=== PATIENT | male | born 1990 | race Caucasian/White ===

== ENCOUNTER 2016-12-17 20:28 | Emergency (ER) | payer MEDICAID, OTHER ==
[2016-12-18] MEDS ORDERED: CEPHALEXIN 250 MG CAP As Ordered ONE (00:01)
[2016-12-18] MEDS ORDERED: OXYCODONE/APAP 5MG/325MG(BULK) 1 TAB TAB As Ordered ONE (00:01)
--- NOTE | 2016-12-18 00:24 | EDDOCDS ---
Physician Documentation [facility] Name: Frank Sandoval Age: 26 yrs Sex: Male : 1990 Arrival Date: 12/17/2016 Time: 20:28 Bed PD Private MD: [facility] Disposition: 12/17/16 23:55 Discharged to Home/Self Care. Impression: Laceration with foreign body of right hand - glass. - Condition is Stable. - Discharge Instructions: Hand Contusion, Laceration Care, Adult. - Prescriptions for Keflex 500 mg Oral Capsule - take 1 capsule by ORAL route every 8 hours for 10 days; 30 capsule. - Medication Reconciliation, Local Pharmacy Hours form. - Follow up: Luciano Cross; When: Call to arrange an appointment; Reason: Recheck today's complaints, Continuance of care. Follow up: Jesu Lowry; When: Call to arrange an appointment; Reason: Recheck today's complaints, Continuance of care. - Problem is new. - Symptoms are unchanged. Historical: - Allergies: hydrocodone; - Home Meds: 1. none - PMHx: none; - PSHx: oral surgery; - Social history: Smoking status: Patient uses tobacco products, current every day smoker. No barriers to communication noted, The patient speaks fluent Taiwanese, Speaks appropriately for age. - Family history: Not pertinent. - : The pt / caregiver states he / she is not on anticoagulants. Home medication list is obtained from the patient. - Exposure Risk Screening:: None identified. Vital Signs: 12/17 20:31 BP 158 / 72; Pulse 108; Resp 18 S; Temp 99.1(O); Pulse Ox 99% on R/A; Weight 63.5 kg / gr2 139.99 lbs (R); Height 5 ft. 4 in. (162.56 cm) (R); Pain 7/10; 23:59 BP 148 / 79; Pulse 93; Resp 16; Temp 98.4(TE); Pulse Ox 96% on R/A; Pain 0/10; rw1 20:31 Body Mass Index 24.03 (63.50 kg, 162.56 cm) gr2 Procedures: 23:58 Laceration repair:. mo1 Laceration: 23:58 Wound Repair of 1.5cm ( 0.6in ) full thickness laceration to medial aspect of right mo1 hand. Irregularly shaped.. Skin/tissue flap noted.. Foreign body noted.. Distal neuro/vascular/tendon intact. Anesthesia: Local anesthetic administered with 2 mls of 2% lidocaine. Wound prep: Moderate cleansing with betadine by provider, Wound margin revised minimally, Wound debrided, Wound explored. Skin closed with 1 x 4-0 Prolene using Simple interrupted sutures. Dressed with Bacitracin. Patient tolerated well. MDM: 23:08 Hand, Complete Ordered. EDMS 23:55 oxyCODONE-acetaminophen 4 pack 5 mg-325 mg 1 packets PO once; Dispense with pt, take as mo1 per instruction on package ordered. 23:55 Cephalexin 500 mg PO once ordered. mo1 23:55 Dressing ordered. mo1 12/18 00:02 Financial registration complete. hs2 Administered Medications: 00:13 Drug: Cephalexin 500 mg [cephalexin 250 mg capsule (2 caps)] Route: PO; rw1 00:14 Follow up: Response: Pt left department before re-evaluation is appropriate rw1 00:17 Drug: oxyCODONE-acetaminophen 4 pack 1 packets [oxycodone-acetaminophen 5 mg-325 mg rw1 tablet (1 tabs)] {Co-Signature: ko2 (Nadira Barragan RN).} Route: PO; 00:23 Follow up: Response: Med's dispensed home rw1 Signatures: Dispatcher [employer] EDMA Naresh Decker,LEATHER TACKER LEATHER TACKER rw1 Chaitanya Vogel PA PA mo1 Charu Castle,RN RN eaJess Prado, Reg Reg hs2 Nadira Barragan RN ko2 MTDD
--- NOTE | 2016-12-18 00:25 | EDDOCDS ---
[facility] Name: Frank Sandoval Age: 26 yrs Sex: Male : 1990 Arrival Date: 12/17/2016 Time: 20:28 Bed PD Private MD: [facility] Diagnosis: Laceration with foreign body of right hand-glass Presentation: 12/17 20:33 Presenting complaint: Patient states: pt states while trying to open a window that was ead frozen shut, window shattered. pt reports glass to right hand. dressing in place on arrival. pt reports incident occurred at approx 1930. Presenting complaint: Patient states: pt states he went to [facility] and was told to come to ER. Adult Sepsis Screening: The patient does not have new or worsening altered mentation. Patient's respiratory rate is less than 22. Systolic blood pressure is greater than 100. Patient has a qSOFA score of 0- Negative Sepsis Screen. Suicide/Homicide risk assessment- the patient denies having any suicidal and/or homicidal ideations and does not present with any other emotional, behavioral or mental health complaints. Status: Patient is not a field service supervisor or dependent. Transition of care: patient was not received from another setting of care. 20:33 Method Of Arrival: Walkin/Carried/Asstd ead 20:33 Acuity: RUSS Level 4 ead Triage Assessment: 20:36 General: Appears in no apparent distress, comfortable, Behavior is appropriate for age, ead cooperative. Pain: Location: right hand Pain currently is 10 out of 10 on a pain scale. HIV screening NA for this visit Offered previously. Neurological: No deficits noted. Respiratory: Respiratory effort is even, unlabored. Derm: Skin is pink, warm & dry. Derm: pt has dressing in place on arrival. Musculoskeletal: Reports pain in right hand. Historical: - Allergies: hydrocodone; - Home Meds: 1. none - PMHx: none; - PSHx: oral surgery; - Social history: Smoking status: Patient uses tobacco products, current every day smoker. No barriers to communication noted, The patient speaks fluent Portuguese, Speaks appropriately for age. - Family history: Not pertinent. - : The pt / caregiver states he / she is not on anticoagulants. Home medication list is obtained from the patient. - Exposure Risk Screening:: None identified. Screenin/14 00:15 Screening information is obtained from the patient. Fall risk: No risks identified. rw1 Assistance ADL's: requires no assistance with activities of daily living. Abuse/DV Screen: The patient / caregiver reports he/she is: not in a situation that causes fear, pain or injury. Nutritional screening: No deficits noted. Advance Directives: Currently, there is no health care proxy. home support is adequate. Assessment: 00:15 Reassessment: Patient appears in no apparent distress at this time. Patient denies pain rw1 at this time. Patient states feeling better. Patient states symptoms have improved. Vital Signs: 12/17 20:31 BP 158 / 72; Pulse 108; Resp 18 S; Temp 99.1(O); Pulse Ox 99% on R/A; Weight 63.5 kg gr2 (R); Height 5 ft. 4 in. (162.56 cm) (R); Pain 7/10; 23:59 BP 148 / 79; Pulse 93; Resp 16; Temp 98.4(TE); Pulse Ox 96% on R/A; Pain 0/10; rw1 20:31 Body Mass Index 24.03 (63.50 kg, 162.56 cm) gr2 Vitals: 20:31 Log In Time: December 17, 2016 at 20:31. gr2 ED Course: 20:30 Patient visited by Enedelia Courtney. gr2 20:30 Patient moved to Waiting gr2 20:31 [facility] is Private Physician. gr2 20:33 Patient visited by Enedelia Courtney. gr2 20:33 Patient moved to Pre RCE gr2 20:35 Triage Initiated ead 22:57 Chaitanya Vogel PA is PHCP. mo1 22:57 Ike Hilliard DO is Attending Physician. mo1 22:57 Patient moved to Triage 2 kb5 23:07 Patient visited by Chaitanya Vogel PA. mo1 23:21 Patient moved to PD ko2 23:55 Luciano Cross is Referral Physician. mo1 23:55 Jesu Lowry is Referral Physician. mo1 12/18 00:15 The patient / caregiver is instructed regarding the plan of care and ED course. rw1 00:15 No IV's were initiated during this patient's visit. No procedures done that require rw1 assistance. Administered Medications: 00:13 Drug: Cephalexin 500 mg [cephalexin 250 mg capsule (2 caps)] Route: PO; rw1 00:14 Follow up: Response: Pt left department before re-evaluation is appropriate rw1 00:17 Drug: oxyCODONE-acetaminophen 4 pack 1 packets [oxycodone-acetaminophen 5 mg-325 mg rw1 tablet (1 tabs)] {Co-Signature: pal (Nadira Barragan RN).} Route: PO; 00:23 Follow up: Response: Med's dispensed home rw1 Order Results: There are currently no results for this order. Outcome: 12/17 23:55 Discharge ordered by Provider. mo1 02 00:15 Discharge Assessment: Patient awake, alert and oriented x 3. No cognitive and/or rw1 functional deficits noted. Patient verbalized understanding of disposition instructions. patient administered narcotics - yes. Pt provided with safe discharge. The following High Risk Discharge criteria are identified: None. Discharged to home ambulatory, with significant other. Condition: stable Condition: improved. Discharge instructions given to patient, Instructed on discharge instructions, follow up and referral plans. medication usage, no driving heavy equipment, Demonstrated understanding of instructions, medications, Pt was receptive of discharge instructions/ teaching. Prescriptions given X 1. No special radiology studies were completed. Property sent home with patient. 00:24 Patient left the ED. rw1 Signatures: Naresh Decker,ANIMAL SITTER ANIMAL SITTER rw1 Cole Diaz, BONITA PETAL CUTTER kb5 Enedelia Courtney2 Chaitanya Vogel PA PA mo1 Charu Castle RN RN ead Ogden, Kari, RN RN michael2 Nadira rodriguez2 MTDD
--- NOTE | 2016-12-18 07:55 | REP ---
Clinical: Trauma. Technique: AP, lateral, bilateral oblique views. Findings: The osseous structures and joint spaces are intact and normal. There is no evidence for acute fracture or dislocation. Surrounding soft tissues are unremarkable. No subcutaneous emphysema or obvious radiodense foreign body. Impression: No acute fracture or dislocation. Signed by Martell Abebe MD 12/18/2016 07:47 A
--- NOTE | 2016-12-20 01:24 | EDDOCDS ---
Physician Documentation [facility] Name: Frank Sandoval Age: 26 yrs Sex: Male : 1990 Arrival Date: 12/17/2016 Time: 20:28 Bed PD Private MD: [facility] Disposition: 12/17/16 23:55 Discharged to Home/Self Care. Impression: Laceration with foreign body of right hand - glass. - Condition is Stable. - Discharge Instructions: Hand Contusion, Laceration Care, Adult. - Prescriptions for Keflex 500 mg Oral Capsule - take 1 capsule by ORAL route every 8 hours for 10 days; 30 capsule. - Medication Reconciliation, Local Pharmacy Hours form. - Follow up: Luciano Cross; When: Call to arrange an appointment; Reason: Recheck today's complaints, Continuance of care. Follow up: Jesu Lowry; When: Call to arrange an appointment; Reason: Recheck today's complaints, Continuance of care. - Problem is new. - Symptoms are unchanged. Historical: - Allergies: hydrocodone; - Home Meds: 1. none - PMHx: none; - PSHx: oral surgery; - Social history: Smoking status: Patient uses tobacco products, current every day smoker. No barriers to communication noted, The patient speaks fluent Luxembourgish, Speaks appropriately for age. - Family history: Not pertinent. - : The pt / caregiver states he / she is not on anticoagulants. Home medication list is obtained from the patient. - Exposure Risk Screening:: None identified. Vital Signs: 12/17 20:31 BP 158 / 72; Pulse 108; Resp 18 S; Temp 99.1(O); Pulse Ox 99% on R/A; Weight 63.5 kg / gr2 139.99 lbs (R); Height 5 ft. 4 in. (162.56 cm) (R); Pain 7/10; 23:59 BP 148 / 79; Pulse 93; Resp 16; Temp 98.4(TE); Pulse Ox 96% on R/A; Pain 0/10; rw1 20:31 Body Mass Index 24.03 (63.50 kg, 162.56 cm) gr2 Procedures: 23:58 Laceration repair:. mo1 Laceration: 23:58 Wound Repair of 1.5cm ( 0.6in ) full thickness laceration to medial aspect of right mo1 hand. Irregularly shaped.. Skin/tissue flap noted.. Foreign body noted.. Distal neuro/vascular/tendon intact. Anesthesia: Local anesthetic administered with 2 mls of 2% lidocaine. Wound prep: Moderate cleansing with betadine by provider, Wound margin revised minimally, Wound debrided, Wound explored. Skin closed with 1 x 4-0 Prolene using Simple interrupted sutures. Dressed with Bacitracin. Patient tolerated well. MDM: 23:08 Hand, Complete Ordered. EDMS 23:55 oxyCODONE-acetaminophen 4 pack 5 mg-325 mg 1 packets PO once; Dispense with pt, take as mo1 per instruction on package ordered. 23:55 Cephalexin 500 mg PO once ordered. mo1 23:55 Dressing ordered. mo1 12/18 00:02 Financial registration complete. hs2 01:00 [facility] Payment Agreement was scanned into [employer] and attached to record. pm4 12:55 T-Sheet-- Draft Copy was scanned into [employer] and attached to record. gb 20:50 [facility] Payment Agreement was scanned into [employer] and attached to record. [email or web address] Administered Medications: 00:13 Drug: Cephalexin 500 mg [cephalexin 250 mg capsule (2 caps)] Route: PO; rw1 00:14 Follow up: Response: Pt left department before re-evaluation is appropriate rw1 00:17 Drug: oxyCODONE-acetaminophen 4 pack 1 packets [oxycodone-acetaminophen 5 mg-325 mg rw1 tablet (1 tabs)] {Co-Signature: ko2 (Nadira Barragan RN).} Route: PO; 00:23 Follow up: Response: Med's dispensed home rw1 Signatures: Dispatcher [employer] EDMS Elo Lobo, Reg Reg gb Naresh Decker LPN LEAN SIX SIGMA BLACK BELT rw1 Chaitanya Vogel PA PA mo1 Charu Castle RN RN ead Sorenson, Kimberly, Reg Reg ks16 Jess Khan, Reg Reg hs2 Jesu Duque, Reg Reg pm4 Nadira Barragan RN ko2 The chart was reviewed and I authenticate all verbal orders and agree with the evaluation and treatment provided.Attachments: 01:00 [facility] Payment Agreement pm4 12:55 T-Sheet-- Draft Copy gb 20:50 [facility] Payment Agreement [email or web address] Chart Complete MTDD
--- NOTE | 2016-12-20 01:24 | EDDOCDS ---
Nurse's Notes [facility] Name: Frank Sandoval Age: 26 yrs Sex: Male : 1990 Arrival Date: 12/17/2016 Time: 20:28 Bed PD Private MD: [facility] Diagnosis: Laceration with foreign body of right hand-glass Presentation: 12/17 20:33 Presenting complaint: Patient states: pt states while trying to open a window that was ead frozen shut, window shattered. pt reports glass to right hand. dressing in place on arrival. pt reports incident occurred at approx 1930. Presenting complaint: Patient states: pt states he went to [facility] and was told to come to ER. Adult Sepsis Screening: The patient does not have new or worsening altered mentation. Patient's respiratory rate is less than 22. Systolic blood pressure is greater than 100. Patient has a qSOFA score of 0- Negative Sepsis Screen. Suicide/Homicide risk assessment- the patient denies having any suicidal and/or homicidal ideations and does not present with any other emotional, behavioral or mental health complaints. Status: Patient is not a branch service leader or dependent. Transition of care: patient was not received from another setting of care. 20:33 Method Of Arrival: Walkin/Carried/Asstd ead 20:33 Acuity: RUSS Level 4 ead Triage Assessment: 20:36 General: Appears in no apparent distress, comfortable, Behavior is appropriate for age, ead cooperative. Pain: Location: right hand Pain currently is 10 out of 10 on a pain scale. HIV screening NA for this visit Offered previously. Neurological: No deficits noted. Respiratory: Respiratory effort is even, unlabored. Derm: Skin is pink, warm & dry. Derm: pt has dressing in place on arrival. Musculoskeletal: Reports pain in right hand. Historical: - Allergies: hydrocodone; - Home Meds: 1. none - PMHx: none; - PSHx: oral surgery; - Social history: Smoking status: Patient uses tobacco products, current every day smoker. No barriers to communication noted, The patient speaks fluent Dominican, Speaks appropriately for age. - Family history: Not pertinent. - : The pt / caregiver states he / she is not on anticoagulants. Home medication list is obtained from the patient. - Exposure Risk Screening:: None identified. Screenin/14 00:15 Screening information is obtained from the patient. Fall risk: No risks identified. rw1 Assistance ADL's: requires no assistance with activities of daily living. Abuse/DV Screen: The patient / caregiver reports he/she is: not in a situation that causes fear, pain or injury. Nutritional screening: No deficits noted. Advance Directives: Currently, there is no health care proxy. home support is adequate. Assessment: 00:15 Reassessment: Patient appears in no apparent distress at this time. Patient denies pain rw1 at this time. Patient states feeling better. Patient states symptoms have improved. Vital Signs: 12/17 20:31 BP 158 / 72; Pulse 108; Resp 18 S; Temp 99.1(O); Pulse Ox 99% on R/A; Weight 63.5 kg gr2 (R); Height 5 ft. 4 in. (162.56 cm) (R); Pain 7/10; 23:59 BP 148 / 79; Pulse 93; Resp 16; Temp 98.4(TE); Pulse Ox 96% on R/A; Pain 0/10; rw1 20:31 Body Mass Index 24.03 (63.50 kg, 162.56 cm) gr2 Vitals: 20:31 Log In Time: December 17, 2016 at 20:31. gr2 ED Course: 20:30 Patient visited by Enedelia Courtney. gr2 20:30 Patient moved to Waiting gr2 20:31 [facility] is Private Physician. gr2 20:33 Patient visited by Enedelia Courtney. gr2 20:33 Patient moved to Pre RCE gr2 20:35 Triage Initiated ead 22:57 Chaitanya Vogel PA is PHCP. mo1 22:57 Ike Hilliard DO is Attending Physician. mo1 22:57 Patient moved to Triage 2 kb5 23:07 Patient visited by Chaitanya Vogel PA. mo1 23:21 Patient moved to PD ko2 23:55 Luciano Cross is Referral Physician. mo1 23:55 Jesu Lowry is Referral Physician. mo1 12/18 00:15 The patient / caregiver is instructed regarding the plan of care and ED course. rw1 00:15 No IV's were initiated during this patient's visit. No procedures done that require rw1 assistance. 01:00 [facility] Payment Agreement was scanned into [employer] and attached to record. pm4 08:07 Hand, Complete Returned. EDMS 12:55 T-Sheet-- Draft Copy was scanned into [employer] and attached to record. gb 20:50 [facility] Payment Agreement was scanned into [employer] and attached to record. ks16 Administered Medications: 00:13 Drug: Cephalexin 500 mg [cephalexin 250 mg capsule (2 caps)] Route: PO; rw1 00:14 Follow up: Response: Pt left department before re-evaluation is appropriate rw1 00:17 Drug: oxyCODONE-acetaminophen 4 pack 1 packets [oxycodone-acetaminophen 5 mg-325 mg rw1 tablet (1 tabs)] {Co-Signature: koRadha (Nadira Barragan RN).} Route: PO; 00:23 Follow up: Response: Med's dispensed home rw1 Order Results: Radiology Order: Hand, Complete Test: Hand, Complete REASON FOR EXAMINATION: fb; Clinical: Trauma.; ; Technique: AP, lateral, bilateral oblique views.; ; Findings: The osseous structures and joint spaces are intact and normal. There; is no evidence for acute fracture or dislocation. Surrounding soft tissues are; unremarkable. No subcutaneous emphysema or obvious radiodense foreign body.; ; Impression:; No acute fracture or dislocation.; ; ; Signed by; Martell Abebe MD 12/18/2016 07:47 A; Outcome: 12/17 23:55 Discharge ordered by Provider. mo1 12/18 00:15 Discharge Assessment: Patient awake, alert and oriented x 3. No cognitive and/or rw1 functional deficits noted. Patient verbalized understanding of disposition instructions. patient administered narcotics - yes. Pt provided with safe discharge. The following High Risk Discharge criteria are identified: None. Discharged to home ambulatory, with significant other. Condition: stable Condition: improved. Discharge instructions given to patient, Instructed on discharge instructions, follow up and referral plans. medication usage, no driving heavy equipment, Demonstrated understanding of instructions, medications, Pt was receptive of discharge instructions/ teaching. Prescriptions given X 1. No special radiology studies were completed. Property sent home with patient. 00:24 Patient left the ED. rw1 Signatures: Dispatcher [employer] EDMS Elo Lobo, Reg Reg gb Naresh Decker LPN HURL SHAKER rw1 Cole Diaz, DEAN OF FACULTY DEAN OF FACULTY kb5 Enedelia Courtney gr2 Chaitanya Vogel PA PA mo1 Charu Castle,RN RN madelin Barragan,Nadira,RN RN ko2 Lupe Urbina, Reg Reg ks16 Jesu Duque, Reg Reg pm4 Nadira rodriguez2 Chart Complete MTDD
--- NOTE | 2016-12-20 01:24 | EDDOCDS ---
Physician Documentation [facility] Name: Frank Sandoval Age: 26 yrs Sex: Male : 1990 Arrival Date: 12/17/2016 Time: 20:28 Bed PD Private MD: [facility] Disposition: 12/17/16 23:55 Discharged to Home/Self Care. Impression: Laceration with foreign body of right hand - glass. - Condition is Stable. - Discharge Instructions: Hand Contusion, Laceration Care, Adult. - Prescriptions for Keflex 500 mg Oral Capsule - take 1 capsule by ORAL route every 8 hours for 10 days; 30 capsule. - Medication Reconciliation, Local Pharmacy Hours form. - Follow up: Luciano Cross; When: Call to arrange an appointment; Reason: Recheck today's complaints, Continuance of care. Follow up: Jesu Lowry; When: Call to arrange an appointment; Reason: Recheck today's complaints, Continuance of care. - Problem is new. - Symptoms are unchanged. Historical: - Allergies: hydrocodone; - Home Meds: 1. none - PMHx: none; - PSHx: oral surgery; - Social history: Smoking status: Patient uses tobacco products, current every day smoker. No barriers to communication noted, The patient speaks fluent Croatian, Speaks appropriately for age. - Family history: Not pertinent. - : The pt / caregiver states he / she is not on anticoagulants. Home medication list is obtained from the patient. - Exposure Risk Screening:: None identified. Vital Signs: 12/17 20:31 BP 158 / 72; Pulse 108; Resp 18 S; Temp 99.1(O); Pulse Ox 99% on R/A; Weight 63.5 kg / gr2 139.99 lbs (R); Height 5 ft. 4 in. (162.56 cm) (R); Pain 7/10; 23:59 BP 148 / 79; Pulse 93; Resp 16; Temp 98.4(TE); Pulse Ox 96% on R/A; Pain 0/10; rw1 20:31 Body Mass Index 24.03 (63.50 kg, 162.56 cm) gr2 Procedures: 23:58 Laceration repair:. mo1 Laceration: 23:58 Wound Repair of 1.5cm ( 0.6in ) full thickness laceration to medial aspect of right mo1 hand. Irregularly shaped.. Skin/tissue flap noted.. Foreign body noted.. Distal neuro/vascular/tendon intact. Anesthesia: Local anesthetic administered with 2 mls of 2% lidocaine. Wound prep: Moderate cleansing with betadine by provider, Wound margin revised minimally, Wound debrided, Wound explored. Skin closed with 1 x 4-0 Prolene using Simple interrupted sutures. Dressed with Bacitracin. Patient tolerated well. MDM: 23:08 Hand, Complete Ordered. EDMS 23:55 oxyCODONE-acetaminophen 4 pack 5 mg-325 mg 1 packets PO once; Dispense with pt, take as mo1 per instruction on package ordered. 23:55 Cephalexin 500 mg PO once ordered. mo1 23:55 Dressing ordered. mo1 12/18 00:02 Financial registration complete. hs2 01:00 [facility] Payment Agreement was scanned into [employer] and attached to record. pm4 12:55 T-Sheet-- Draft Copy was scanned into [employer] and attached to record. gb 20:50 [facility] Payment Agreement was scanned into [employer] and attached to record. ks16 Administered Medications: 00:13 Drug: Cephalexin 500 mg [cephalexin 250 mg capsule (2 caps)] Route: PO; rw1 00:14 Follow up: Response: Pt left department before re-evaluation is appropriate rw1 00:17 Drug: oxyCODONE-acetaminophen 4 pack 1 packets [oxycodone-acetaminophen 5 mg-325 mg rw1 tablet (1 tabs)] {Co-Signature: ko2 (Nadira Barragan RN).} Route: PO; 00:23 Follow up: Response: Med's dispensed home rw1 Signatures: Dispatcher [employer] EDMS Elo Lobo, Reg Reg gb Naresh Decker LPN TOWEL ROLLING MACHINE OPERATOR rw1 Chaitanya Vogel PA PA mo1 Charu Castle RN RN ead Sorenson, Kimberly, Reg Reg ks16 Jess Khan, Reg Reg hs2 Jesu Duque, Reg Reg pm4 Nadira Barragan RN ko2 The chart was reviewed and I authenticate all verbal orders and agree with the evaluation and treatment provided.Attachments: 01:00 [facility] Payment Agreement pm4 12:55 T-Sheet-- Draft Copy gb 20:50 [facility] Payment Agreement ks16 Chart Complete MTDD
== END 2016-12-18 00:24 | disposition home or self-care (01) ==
LOC: M ED 20:28
DX: S61.421A Laceration with foreign body of right hand, initial encounter (principal); W25.XXXA Contact with sharp glass, initial encounter; Y92.018 Other place in single-family (private) house as the place of occurrence of the external cause; Y93.89 Activity, other specified; Y99.8 Other external cause status; Z88.5 Allergy status to narcotic agent; F17.210 Nicotine dependence, cigarettes, uncomplicated

== ENCOUNTER 2016-12-18 16:48 | Emergency (ER) | payer OTHER ==
--- NOTE | 2016-12-18 20:05 | EDDOCDS ---
Nurse's Notes [facility] Name: Frank Sandoval Age: 26 yrs Sex: Male : 1990 Arrival Date: 12/18/2016 Time: 16:48 Bed TR8 Private MD: NO PRIMARY PHYSICIAN, . Diagnosis: Encounter for change or removal of nonsurgical wound dressing Presentation: 12/18 16:56 Presenting complaint: states: cut right hand on glass window. seen here yesterday srm and had stitches. throbbing still. ? glass in it. couldn't get into ortho today. wans more pain meds because Tylenol isnt helping. Adult Sepsis Screening: The patient does not have new or worsening altered mentation. Patient's respiratory rate is less than 22. Systolic blood pressure is greater than 100. Patient has a qSOFA score of 0- Negative Sepsis Screen. Suicide/Homicide risk assessment- the patient denies having any suicidal and/or homicidal ideations and does not present with any other emotional, behavioral or mental health complaints. Status: Patient is not a general service officer or dependent. Transition of care: patient was not received from another setting of care. 16:56 Acuity: RUSS Level 5 [facility] 16:56 Method Of Arrival: Walkin/Carried/Asstd [facility] Triage Assessment: 17:01 General: Appears in no apparent distress, Behavior is appropriate for age, cooperative. srm Pain: Pain currently is 10 out of 10 on a pain scale. HIV screening NA for this visit Offered previously. Historical: - Allergies: hydrocodone; - Home Meds: 1. Keflex 500 mg Oral cap 1 cap three times a day (Last dose: 12/18/2016 12:00) - PMHx: none; - PSHx: oral surgery; - Social history: Smoking status: Patient uses tobacco products, current every day smoker. No barriers to communication noted, The patient speaks fluent Maltese, Speaks appropriately for age. - Family history: Not pertinent. - : The pt / caregiver states he / she is not on anticoagulants. Home medication list is obtained from the patient. - Exposure Risk Screening:: None identified. Screenin:32 Screening information is obtained from the patient. Fall risk: No risks identified. kr3 Assistance ADL's: requires no assistance with activities of daily living. Abuse/DV Screen: The patient / caregiver reports he/she is: not in a situation that causes fear, pain or injury. Nutritional screening: No deficits noted. Advance Directives: Currently, there is no health care proxy. home support is adequate. Assessment: 18:32 Reassessment: Patient appears in no apparent distress at this time. Pain: Location: kr3 right hand Quality of pain is described as throbbing. Derm: Skin is normal. Musculoskeletal: Reports limited ROM digits right hand due to pain. 19:25 Reassessment: when discharging patient pt requesting pain medication i was instructed cz by provider that pt could use tylenol motrin and ice for pain control. offered to dispense medication pt declined and requested to speak with completion supervisor. completion supervisor contacted and will speak with pt. pt moved to room 25 and family joined pt waiting for completion supervisor. Vital Signs: 16:50 BP 138 / 73; Pulse 94; Resp 18 S; Temp 98.3(O); Pulse Ox 97% on R/A; Weight 65.77 kg gr2 (R); Height 5 ft. 5 in. (165.10 cm) (R); Pain 7/10; 19:14 BP 140 / 87; Pulse 98; Resp 20; Temp 100.3(TE); Pulse Ox 96% on R/A; Pain 10/10; ar3 16:50 Body Mass Index 24.13 (65.77 kg, 165.10 cm) gr2 Vitals: 16:50 Log In Time: December 18, 2016 at 16:50. gr2 ED Course: 16:49 Patient visited by Enedelia Courtney. gr2 16:49 Patient moved to Waiting gr2 16:50 NO PRIMARY PHYSICIAN, . is Private Physician. gr2 16:51 Patient visited by Enedelia Courtney. gr2 16:51 Patient moved to Pre RCE gr2 16:55 Patient visited by Enedelia Courtney. gr2 16:59 Triage Initiated srm 18:29 Bonita Licea,RN is Primary Nurse. kr3 18:29 Shayna Smith,AIME is Primary Nurse. kr3 18:29 Patient moved to Triage 2 kr3 18:33 The patient / caregiver is instructed regarding the plan of care and ED course. Patient kr3 has correct armband on for positive identification. 18:56 Eron Dias PA is PHCP. btw 18:56 David Oliver MD is Attending Physician. btw 18:56 Patient visited by Eron Dias PA. btw 19:01 Primary Nurse role handed off by Shayna Smith,RN kr3 [facility]. btw 19:15 Patient visited by Radha Pool PCA. ar3 19:22 Patient moved to PR1 / 25 cz 19:59 Patient moved to TR2 cz 19:59 Patient moved to TR8 ar3 20:03 No IV's were initiated during this patient's visit. No procedures done that require cz assistance. Order Results: There are currently no results for this order. Outcome: 19:06 Discharge ordered by Provider. btw 20:02 Discharge Assessment: pt left E.D. after speaking with nursing supervior patient cz administered narcotics - no. The following High Risk Discharge criteria are identified: None. Discharged to home ambulatory, with family. Condition: unchanged. Discharge instructions given to patient, Instructed on discharge instructions, follow up and referral plans. Demonstrated understanding of instructions, Pt was receptive of discharge instructions/ teaching. No special radiology studies were completed. Property :Personal belongings accompany Pt. 20:03 Patient left the ED. cz Signatures: Cheli Kaur, RN Derek Espana RN RN cz Robie, Kathleen,AIME SALOMON kr3 Radha Pool PCA FUEL CELL DESIGNER ar3 Eron Dias PA PA bt Enedelia Courtney gr2 MTDD
--- NOTE | 2016-12-18 20:05 | EDDOCDS ---
Physician Documentation [facility] Name: Frank Sandoval Age: 26 yrs Sex: Male : 1990 Arrival Date: 12/18/2016 Time: 16:48 Bed TR8 Private MD: NO PRIMARY PHYSICIAN, . Disposition: 12/18/16 19:06 Discharged to Home/Self Care. Impression: Encounter for change or removal of nonsurgical wound dressing. - Condition is Stable. - Discharge Instructions: Wound Check, Wound Care, [id number], Dressing Change, [id number]. - Medication Reconciliation, Local Pharmacy Hours form. - Follow up: Orthopaedics, [facility]; When: As previously arranged; Reason: Further diagnostic work-up, Recheck today's complaints, Continuance of care. - Problem is an ongoing problem. - Symptoms are unchanged. Historical: - Allergies: hydrocodone; - Home Meds: 1. Keflex 500 mg Oral cap 1 cap three times a day (Last dose: 12/18/2016 12:00) - PMHx: none; - PSHx: oral surgery; - Social history: Smoking status: Patient uses tobacco products, current every day smoker. No barriers to communication noted, The patient speaks fluent Irish, Speaks appropriately for age. - Family history: Not pertinent. - : The pt / caregiver states he / she is not on anticoagulants. Home medication list is obtained from the patient. - Exposure Risk Screening:: None identified. Vital Signs: 12/18 16:50 BP 138 / 73; Pulse 94; Resp 18 S; Temp 98.3(O); Pulse Ox 97% on R/A; Weight 65.77 kg / gr2 145 lbs (R); Height 5 ft. 5 in. (165.10 cm) (R); Pain 7/10; 19:14 BP 140 / 87; Pulse 98; Resp 20; Temp 100.3(TE); Pulse Ox 96% on R/A; Pain 10/10; ar3 16:50 Body Mass Index 24.13 (65.77 kg, 165.10 cm) gr2 Procedures: 19:11 Fracture care/splinting: (Restorative Care) Splint applied to palmar aspect of distal btw phalanx of right little finger, palmar aspect of middle phalanx of right little finger, palmar aspect of proximal phalanx of right little finger and outer aspect of right palm using finger splint, applied by myself. Examined by me, post splint application: neurovascular intact, 2+ distal pulses palpable, brisk capillary refill noted, Patient tolerated well. MDM: 19:14 Financial registration complete. [email or web address] Signatures: Cheli Kaur, Derek Espana RN, RN RN cz Wolfenden, Brandon, PA PA btw Lupe Urbina, Reg Reg ks16 MTDD
--- NOTE | 2016-12-20 21:05 | EDDOCDS ---
Physician Documentation [facility] Name: Frank Sandoval Age: 26 yrs Sex: Male : 1990 Arrival Date: 12/18/2016 Time: 16:48 Bed TR8 Private MD: NO PRIMARY PHYSICIAN, . Disposition: 12/18/16 19:06 Discharged to Home/Self Care. Impression: Encounter for change or removal of nonsurgical wound dressing. - Condition is Stable. - Discharge Instructions: Wound Check, Wound Care, [id number], Dressing Change, Tubg-ol-Upav. - Medication Reconciliation, Local Pharmacy Hours form. - Follow up: Orthopaedics, [facility]; When: As previously arranged; Reason: Further diagnostic work-up, Recheck today's complaints, Continuance of care. - Problem is an ongoing problem. - Symptoms are unchanged. Historical: - Allergies: hydrocodone; - Home Meds: 1. Keflex 500 mg Oral cap 1 cap three times a day (Last dose: 12/18/2016 12:00) - PMHx: none; - PSHx: oral surgery; - Social history: Smoking status: Patient uses tobacco products, current every day smoker. No barriers to communication noted, The patient speaks fluent Swiss, Speaks appropriately for age. - Family history: Not pertinent. - : The pt / caregiver states he / she is not on anticoagulants. Home medication list is obtained from the patient. - Exposure Risk Screening:: None identified. Vital Signs: 12/18 16:50 BP 138 / 73; Pulse 94; Resp 18 S; Temp 98.3(O); Pulse Ox 97% on R/A; Weight 65.77 kg / gr2 145 lbs (R); Height 5 ft. 5 in. (165.10 cm) (R); Pain 7/10; 19:14 BP 140 / 87; Pulse 98; Resp 20; Temp 100.3(TE); Pulse Ox 96% on R/A; Pain 10/10; ar3 16:50 Body Mass Index 24.13 (65.77 kg, 165.10 cm) gr2 Procedures: 19:11 Fracture care/splinting: (Restorative Care) Splint applied to palmar aspect of distal btw phalanx of right little finger, palmar aspect of middle phalanx of right little finger, palmar aspect of proximal phalanx of right little finger and outer aspect of right palm using finger splint, applied by myself. Examined by me, post splint application: neurovascular intact, 2+ distal pulses palpable, brisk capillary refill noted, Patient tolerated well. MDM: 19:14 Financial registration complete. ks16 12/19 13:18 T-Sheet-- Draft Copy was scanned into [employer] and attached to record. gb Signatures: Cheli Kaur RN RN srm Zecher, Calvin, RN RN cz Barnhardt, Gloria, Reg Reg gb Eron Dias PA PA btw Sorenson, Kimberly, Reg Reg ks16 The chart was reviewed and I authenticate all verbal orders and agree with the evaluation and treatment provided.Attachments: 13:18 T-Sheet-- Draft Copy gb Chart Complete MTDD
--- NOTE | 2016-12-20 21:05 | EDDOCDS ---
Nurse's Notes [facility] Name: Frank Sandoval Age: 26 yrs Sex: Male : 1990 Arrival Date: 12/18/2016 Time: 16:48 Bed TR8 Private MD: NO PRIMARY PHYSICIAN, . Diagnosis: Encounter for change or removal of nonsurgical wound dressing Presentation: 12/18 16:56 Presenting complaint: states: cut right hand on glass window. seen here yesterday srm and had stitches. throbbing still. ? glass in it. couldn't get into ortho today. wans more pain meds because Tylenol isnt helping. Adult Sepsis Screening: The patient does not have new or worsening altered mentation. Patient's respiratory rate is less than 22. Systolic blood pressure is greater than 100. Patient has a qSOFA score of 0- Negative Sepsis Screen. Suicide/Homicide risk assessment- the patient denies having any suicidal and/or homicidal ideations and does not present with any other emotional, behavioral or mental health complaints. Status: Patient is not a supervisor home restoration service or dependent. Transition of care: patient was not received from another setting of care. 16:56 Acuity: RUSS Level 5 [facility] 16:56 Method Of Arrival: Walkin/Carried/Asstd [facility] Triage Assessment: 17:01 General: Appears in no apparent distress, Behavior is appropriate for age, cooperative. srm Pain: Pain currently is 10 out of 10 on a pain scale. HIV screening NA for this visit Offered previously. Historical: - Allergies: hydrocodone; - Home Meds: 1. Keflex 500 mg Oral cap 1 cap three times a day (Last dose: 12/18/2016 12:00) - PMHx: none; - PSHx: oral surgery; - Social history: Smoking status: Patient uses tobacco products, current every day smoker. No barriers to communication noted, The patient speaks fluent Upper Sorbian, Speaks appropriately for age. - Family history: Not pertinent. - : The pt / caregiver states he / she is not on anticoagulants. Home medication list is obtained from the patient. - Exposure Risk Screening:: None identified. Screenin:32 Screening information is obtained from the patient. Fall risk: No risks identified. kr3 Assistance ADL's: requires no assistance with activities of daily living. Abuse/DV Screen: The patient / caregiver reports he/she is: not in a situation that causes fear, pain or injury. Nutritional screening: No deficits noted. Advance Directives: Currently, there is no health care proxy. home support is adequate. Assessment: 18:32 Reassessment: Patient appears in no apparent distress at this time. Pain: Location: kr3 right hand Quality of pain is described as throbbing. Derm: Skin is normal. Musculoskeletal: Reports limited ROM digits right hand due to pain. 19:25 Reassessment: when discharging patient pt requesting pain medication i was instructed cz by provider that pt could use tylenol motrin and ice for pain control. offered to dispense medication pt declined and requested to speak with anhydrous ammonia production supervisor. anhydrous ammonia production supervisor contacted and will speak with pt. pt moved to room 25 and family joined pt waiting for anhydrous ammonia production supervisor. Vital Signs: 16:50 BP 138 / 73; Pulse 94; Resp 18 S; Temp 98.3(O); Pulse Ox 97% on R/A; Weight 65.77 kg gr2 (R); Height 5 ft. 5 in. (165.10 cm) (R); Pain 7/10; 19:14 BP 140 / 87; Pulse 98; Resp 20; Temp 100.3(TE); Pulse Ox 96% on R/A; Pain 10/10; ar3 16:50 Body Mass Index 24.13 (65.77 kg, 165.10 cm) gr2 Vitals: 16:50 Log In Time: December 18, 2016 at 16:50. gr2 ED Course: 16:49 Patient visited by Enedelia Courtney. gr2 16:49 Patient moved to Waiting gr2 16:50 NO PRIMARY PHYSICIAN, . is Private Physician. gr2 16:51 Patient visited by Enedelia Courtney. gr2 16:51 Patient moved to Pre RCE gr2 16:55 Patient visited by Enedelia Courtney. gr2 16:59 Triage Initiated srm 18:29 Bonita Licea,RN is Primary Nurse. kr3 18:29 Shayna Smith,AIME is Primary Nurse. kr3 18:29 Patient moved to Triage 2 kr3 18:33 The patient / caregiver is instructed regarding the plan of care and ED course. Patient kr3 has correct armband on for positive identification. 18:56 Eron Dias PA is PHCP. btw 18:56 David Oliver MD is Attending Physician. btw 18:56 Patient visited by Eron Dias PA. btw 19:01 Primary Nurse role handed off by Shayna Smith,AIME sparks3 [facility]. btw 19:15 Patient visited by Rahda Pool PCA. ar3 19:22 Patient moved to PR1 / 25 cz 19:59 Patient moved to TR2 cz 19:59 Patient moved to TR8 ar3 20:03 No IV's were initiated during this patient's visit. No procedures done that require cz assistance. 12/19 13:18 T-Sheet-- Draft Copy was scanned into [employer] and attached to record. Order Results: There are currently no results for this order. Outcome: 12/18 19:06 Discharge ordered by Provider. btw 20:02 Discharge Assessment: pt left E.D. after speaking with nursing supervior patient cz administered narcotics - no. The following High Risk Discharge criteria are identified: None. Discharged to home ambulatory, with family. Condition: unchanged. Discharge instructions given to patient, Instructed on discharge instructions, follow up and referral plans. Demonstrated understanding of instructions, Pt was receptive of discharge instructions/ teaching. No special radiology studies were completed. Property :Personal belongings accompany Pt. 20:03 Patient left the ED. cz Signatures: Cheli Kaur, RN AIME [facility] Derek Swan RN RN Elo Lobo, Reg Reg Shayna Smith,AIME SALOMON kr3 Radha Pool PCA [facility] ar3 Eron Dias PA PA btw Raymond, Gainslee gr2 Chart Complete MTDD
--- NOTE | 2016-12-20 21:05 | EDDOCDS ---
Physician Documentation [facility] Name: Frank Sandoval Age: 26 yrs Sex: Male : 1990 Arrival Date: 12/18/2016 Time: 16:48 Bed TR8 Private MD: NO PRIMARY PHYSICIAN, . Disposition: 12/18/16 19:06 Discharged to Home/Self Care. Impression: Encounter for change or removal of nonsurgical wound dressing. - Condition is Stable. - Discharge Instructions: Wound Check, Wound Care, Qeyh-uj-Hzxo, Dressing Change, Igew-xs-Sanp. - Medication Reconciliation, Local Pharmacy Hours form. - Follow up: Orthopaedics, [facility]; When: As previously arranged; Reason: Further diagnostic work-up, Recheck today's complaints, Continuance of care. - Problem is an ongoing problem. - Symptoms are unchanged. Historical: - Allergies: hydrocodone; - Home Meds: 1. Keflex 500 mg Oral cap 1 cap three times a day (Last dose: 12/18/2016 12:00) - PMHx: none; - PSHx: oral surgery; - Social history: Smoking status: Patient uses tobacco products, current every day smoker. No barriers to communication noted, The patient speaks fluent Togolese, Speaks appropriately for age. - Family history: Not pertinent. - : The pt / caregiver states he / she is not on anticoagulants. Home medication list is obtained from the patient. - Exposure Risk Screening:: None identified. Vital Signs: 12/18 16:50 BP 138 / 73; Pulse 94; Resp 18 S; Temp 98.3(O); Pulse Ox 97% on R/A; Weight 65.77 kg / gr2 145 lbs (R); Height 5 ft. 5 in. (165.10 cm) (R); Pain 7/10; 19:14 BP 140 / 87; Pulse 98; Resp 20; Temp 100.3(TE); Pulse Ox 96% on R/A; Pain 10/10; ar3 16:50 Body Mass Index 24.13 (65.77 kg, 165.10 cm) gr2 Procedures: 19:11 Fracture care/splinting: (Restorative Care) Splint applied to palmar aspect of distal btw phalanx of right little finger, palmar aspect of middle phalanx of right little finger, palmar aspect of proximal phalanx of right little finger and outer aspect of right palm using finger splint, applied by myself. Examined by me, post splint application: neurovascular intact, 2+ distal pulses palpable, brisk capillary refill noted, Patient tolerated well. MDM: 19:14 Financial registration complete. ks16 12/19 13:18 T-Sheet-- Draft Copy was scanned into [employer] and attached to record. gb Signatures: Cheli Kaur RN RN srm Zecher, Calvin, RN RN cz Barnhardt, Gloria, Reg Reg gb Eron Dias PA PA btw Sorenson, Kimberly, Reg Reg ks16 The chart was reviewed and I authenticate all verbal orders and agree with the evaluation and treatment provided.Attachments: 13:18 T-Sheet-- Draft Copy gb Chart Complete MTDD
== END 2016-12-18 20:03 | disposition home or self-care (01) ==
LOC: M ED 16:48
DX: S61.421D Laceration with foreign body of right hand, subsequent encounter (principal); W25.XXXD Contact with sharp glass, subsequent encounter; Z79.2 Long term (current) use of antibiotics; F17.210 Nicotine dependence, cigarettes, uncomplicated; Z88.5 Allergy status to narcotic agent

== ENCOUNTER 2017-01-10 23:18 | Emergency (ER) | payer MEDICAID, OTHER ==
[~2017-01-10] VITALS: Ht 165.1 cm; Wt 65.8 kg
[2017-01-11] MEDS ORDERED: PERCOCET 5MG/325MG TAB PO ONE (00:45)
[2017-01-11] MEDS ORDERED: CLINDAMYCIN 150 MG CAP PO ONE (01:00)
[2017-01-11] MEDS ORDERED: IBUP600T26 PO (01:06)
[2017-01-11] MEDS ORDERED: CLEO300C2 PO (01:06)
[2017-01-11 01:39] VITALS: BP 122/60
--- NOTE | 2017-01-11 06:06 | REP ---
Clinical: Trauma . Technique: AP, lateral, bilateral oblique views right ankle . Findings: No acute fracture or dislocation. Skeletal structures and joint spaces are intact and normal. Ankle mortise appears stable. No subcutaneous emphysema or radiodense foreign body. Impression: Normal right ankle radiograph series. No acute fracture or dislocation. Signed by Martell Abebe MD 01/11/2017 05:57 A
--- NOTE | 2017-01-11 06:07 | REP ---
Clinical: Trauma. Crush injury. Technique: AP, lateral, bilateral oblique views. Findings: The osseous structures and joint spaces are intact and normal. There is no evidence for acute fracture or dislocation. Surrounding soft tissues are unremarkable and without subcutaneous emphysema or radiodense foreign body. Impression: No acute fracture or dislocation. Signed by Martell Abebe MD 01/11/2017 05:58 A
== END 2017-01-11 01:41 | disposition home or self-care (01) ==
LOC: M ED 01-11 01:17
DX: S90.31XA Contusion of right foot, initial encounter (principal); L03.115 Cellulitis of right lower limb; W20.8XXA Other cause of strike by thrown, projected or falling object, initial encounter; Y92.099 Unspecified place in other non-institutional residence as the place of occurrence of the external cause; Y93.9 Activity, unspecified; Y99.9 Unspecified external cause status; F17.200 Nicotine dependence, unspecified, uncomplicated; Z88.5 Allergy status to narcotic agent

== ENCOUNTER 2017-08-09 12:39 | Emergency (ER) | payer MEDICAID, OTHER ==
[~2017-08-09] VITALS: Ht 165.1 cm; Wt 65.9 kg
[~2017-08-09 12:39] MED LIST: CLEO300C2 PO; IBUP-1022 PO
[2017-08-09] MEDS ORDERED: PERCOCET 5MG/325MG TAB PO ONE (14:15)
--- NOTE | 2017-08-09 15:12 | REP ---
LEFT WRIST SERIES: Four views of the left wrist are performed and demonstrate no fracture, dislocation or intrinsic bone disease. IMPRESSION: No fracture or dislocation. Signed by Norm Mendoza MD 08/09/2017 04:13 P
--- NOTE | 2017-08-09 15:16 | REP ---
LEFT HAND SERIES: Four views of the left hand performed. Metallic ring overlies the fourth digit in the region of the proximal phalanx. This somewhat limits evaluation of that osseous structures. However, I see no evidence of acute fracture, dislocation, or intrinsic bone disease. IMPRESSION: No evidence of acute fracture or dislocation. Signed by Norm Mendoza MD 08/09/2017 04:14 P
[2017-08-09] MEDS ORDERED: MOBI4TAB PO (15:30)
[2017-08-09 15:44] VITALS: BP 129/65
== END 2017-08-09 15:46 | disposition home or self-care (01) ==
LOC: M ED 12:39
DX: S63.502A Unspecified sprain of left wrist, initial encounter (principal); W19.XXXA Unspecified fall, initial encounter; Y92.099 Unspecified place in other non-institutional residence as the place of occurrence of the external cause; Y93.89 Activity, other specified; Y99.9 Unspecified external cause status; F17.200 Nicotine dependence, unspecified, uncomplicated; Z88.5 Allergy status to narcotic agent

== ENCOUNTER 2018-08-18 15:33 | Emergency (ER) | payer OTHER, MEDICAID | END 2018-08-18 17:26 | disposition home or self-care (01) | LOC: M ED 15:33 | DX: Z76.0 Encounter for issue of repeat prescription (principal); F41.9 Anxiety disorder, unspecified; Z79.899 Other long term (current) drug therapy; Z88.5 Allergy status to narcotic agent | CPT/HCPCS: 99284 ==

== ENCOUNTER 2018-08-25 14:37 | Emergency (ER) | payer OTHER, MEDICAID | END 2018-08-25 18:15 | disposition home or self-care (01) | LOC: M ED 14:37 | DX: Z76.0 Encounter for issue of repeat prescription (principal); F41.1 Generalized anxiety disorder; F90.9 Attention-deficit hyperactivity disorder, unspecified type; Z88.5 Allergy status to narcotic agent; Z79.899 Other long term (current) drug therapy | CPT/HCPCS: 99283 ==

== ENCOUNTER 2018-11-18 19:26 | Emergency (ER) | payer MEDICAID, OTHER ==
[~2018-11-18] VITALS: Ht 162.6 cm; Wt 65.5 kg
[2018-11-18 19:26] VITALS: BP 150/86
[~2018-11-18 19:26] MED LIST changes: +ADDE20CA3; +ADDE20CA3 PO; +CITA-230 PO; +CITA20TA4; +CITA20TA4 PO; +CLON-412; +CLON-412 PO; +CLON0.5T8; +CLON0.5T8 PO; +CLONI1TA PO; +MOBI4TAB PO
[2018-11-18] MEDS ORDERED: LIDOCAINE 2% MDV 20 ML VIAL SC ONE (21:45)
[2018-11-18] MEDS ORDERED: NEOSPORIN TOP OINT 15GM TOP ONE (22:30)
[2018-11-18] MEDS ORDERED: traMADol 50 MG TAB PO ONE (22:30)
--- NOTE | 2018-11-19 01:18 | REP ---
Clinical: Trauma. Possible foreign body. Technique: AP, lateral, bilateral oblique views right third digit . Findings: The osseous structures and joint spaces are intact and normal. There is no evidence for acute fracture or dislocation. Surrounding soft tissues are unremarkable. No subcutaneous emphysema or radiodense foreign body. Impression: Normal right third digit. No foreign body. No acute fracture or dislocation. Electronically Signed by Martell Abebe MD 11/19/2018 01:10 A
== END 2018-11-18 22:58 | disposition home or self-care (01) ==
LOC: M ED 19:26
DX: S61.212A Laceration without foreign body of right middle finger without damage to nail, initial encounter (principal); W25.XXXD Contact with sharp glass, subsequent encounter; Y92.090 Kitchen in other non-institutional residence as the place of occurrence of the external cause; F41.9 Anxiety disorder, unspecified; F32.9 Major depressive disorder, single episode, unspecified; Z87.891 Personal history of nicotine dependence; Z88.5 Allergy status to narcotic agent; Z79.899 Other long term (current) drug therapy

== ENCOUNTER 2018-11-30 18:10 | Emergency (ER) | payer MEDICAID, OTHER ==
[~2018-11-30] VITALS: Ht 162.6 cm; Wt 63.6 kg
[2018-11-30] MEDS ORDERED: IBUPROFEN 400 MG TAB PO ONE (19:15)
[2018-11-30 19:25] LABS: INFLUENZA A AMPLIFICATION POSITIVE (NEGATIVE); INFLUENZA B AMPLIFICATION NEGATIVE (NEGATIVE)
[2018-11-30] MEDS ORDERED: OSELTAMIVIR PHOSPHATE 75 MG CAP (TAMIFLU) PO ONE (19:45)
[2018-11-30] MEDS ORDERED: OSEL75CA PO (19:47)
[2018-11-30 20:09] VITALS: BP 116/71
[2018-11-30] MEDS ORDERED: IBUP-1114 PO (20:16)
== END 2018-11-30 20:18 | disposition home or self-care (01) ==
LOC: M ED 18:10
DX: J09.X2 Influenza due to identified novel influenza A virus with other respiratory manifestations (principal)

== ENCOUNTER 2019-01-11 21:07 | Emergency (ER) | payer MEDICAID, OTHER ==
[~2019-01-11] VITALS: Ht 170.2 cm; Wt 63.6 kg
[~2019-01-11 21:07] MED LIST changes: +IBUP-1114 PO; +OSEL75CA PO
[2019-01-11 22:10] LABS: BASO % 0.1 % (0.0-1.0); EOS # 0.1 10^3/uL (0.0-0.50); EOS % 0.4 % (0.0-3.0); HEMATOCRIT 45.5 % (42.0-52.0); HEMOGLOBIN 15.8 g/dl (13.5-17.5); LYMPH # 0.7 10^3/uL (1.5-4.5); LYMPH % 3.3 % (24.0-44.0); MEAN CORPUSCULAR HEMOGLOBIN 31.1 pg (27.0-33.0); MEAN CORPUSCULAR HGB CONC 34.7 g/dl (32.0-36.5); MEAN CORPUSCULAR VOLUME 89.6 fl (80.0-96.0); MONO # 0.7 10^3/uL (0.0-0.8); MONO % 3.2 % (0.0-5.0); NEUTROPHILS # 19.5 10^3/uL (1.8-7.7); NEUTROPHILS % 92.7 % (36.0-66.0); PLATELET COUNT, AUTOMATED 280 10^3/uL (150-450); RED BLOOD COUNT 5.08 10^6/uL (4.30-6.10); WHITE BLOOD COUNT 21.1 10^3/uL (4.0-10.0)
[2019-01-11] MEDS ORDERED: NS 1,000 ML IV ONE (22:30)
[2019-01-11] MEDS ORDERED: KETOROLAC 30 MG/ML VIAL (J1885) IV ONE (22:30)
[2019-01-11] MEDS ORDERED: PANTOPRAZOLE 40MG INJ (PROTONIX) (C9113) IV ONE (22:30)
[2019-01-11] MEDS ORDERED: ONDANSETRON 4MG/2ML VIAL (J2405) IV ONE (22:30)
[2019-01-11 22:31] LABS: ALBUMIN 4.4 GM/DL (3.2-5.2); ALT/SGPT 18 U/L (12-78); BILIRUBIN,DIRECT 0.2 MG/DL (0.0-0.2); BILIRUBIN,TOTAL 0.6 MG/DL (0.2-1.0); BLOOD UREA NITROGEN 20 MG/DL (7-18); CALCIUM LEVEL 8.4 MG/DL (8.5-10.1); CARBON DIOXIDE LEVEL 26 MEQ/L (21-32); CHLORIDE LEVEL 104 MEQ/L (98-107); CREATININE FOR GFR 0.81 MG/DL (0.70-1.30); GLOMERULAR FILTRATION RATE > 60.0 (>60); GLUCOSE, FASTING 117 MG/DL (70-100); LIPASE 79 U/L (73-393); POTASSIUM SERUM 4.1 MEQ/L (3.5-5.1); SODIUM LEVEL 139 MEQ/L (136-145); TOTAL PROTEIN 8.2 GM/DL (6.4-8.2)
[2019-01-11] MEDS ORDERED: ZOFR4TAB16 PO (23:37)
[2019-01-12 01:36] VITALS: BP 130/59
[2019-01-12] MEDS ORDERED: ONDANSETRON 4 MG ORAL DISINTEGRATING TAB (Q0162 PER 1MG) PO ONE (01:45)
[2019-01-12] MEDS ORDERED: ACETAMINOPHEN 325 MG TAB PO ONE (01:45)
--- NOTE | 2019-01-12 04:04 | REP ---
Clinical: Abdominal pain. Technique: Upright view of the chest with supine and upright views of the abdomen and pelvis. Findings: Frontal upright view of the chest demonstrates no acute cardiopulmonary process or free air below the diaphragm to suspect pneumoperitoneum. Supine and upright views of the abdomen and pelvis demonstrate nonspecific bowel gas pattern without obstruction or perforation. No organomegaly. No abnormal calcifications. Skeletal structures normal for age. Impression: Nonspecific bowel gas pattern. Electronically Signed by Martell Abebe MD 01/12/2019 03:56 A
== END 2019-01-12 01:50 | disposition home or self-care (01) ==
LOC: M ED 21:07
DX: K52.9 Noninfective gastroenteritis and colitis, unspecified (principal); Z20.89 Contact with and (suspected) exposure to other communicable diseases; Z87.891 Personal history of nicotine dependence; Z88.5 Allergy status to narcotic agent; Z79.899 Other long term (current) drug therapy
CPT/HCPCS: 74021; 80048; 80076; 83690; 85025; 96374; 96375; 99284; C9113; J1885; J2405; Q0162

== ENCOUNTER 2019-11-19 15:47 | Emergency (ER) | payer MEDICAID, OTHER ==
[~2019-11-19] VITALS: Ht 162.6 cm; Wt 58.3 kg
[~2019-11-19 15:47] MED LIST changes: -CITA-230 PO; -CITA20TA4; -CITA20TA4 PO; +CITA20TA6; +CITA20TA6 PO; +CITA20TA7 PO; +CLON0.5T2; +CLON0.5T2 PO; -CLON0.5T8; -CLON0.5T8 PO; +ZOFR4TAB16 PO
[2019-11-19 15:48] VITALS: BP 144/87
[2019-11-19] MEDS ORDERED: AUGMENTIN 875 MG TAB PO ONE (17:15)
[2019-11-19] MEDS ORDERED: IBUPROFEN 600 MG TAB PO ONE (17:15)
== END 2019-11-19 17:15 | disposition left against medical advice (07) ==
LOC: M ED 15:47
DX: S02.5XXA Fracture of tooth (traumatic), initial encounter for closed fracture (principal); Y92.9 Unspecified place or not applicable; Y93.9 Activity, unspecified; Y99.9 Unspecified external cause status; Z88.5 Allergy status to narcotic agent; Z53.20 Procedure and treatment not carried out because of patient's decision for unspecified reasons

== ENCOUNTER 2022-09-20 13:17 | Emergency (ER) | payer OTHER, MEDICAID ==
[~2022-09-20] VITALS: Ht 162.6 cm; Wt 61.2 kg
[2022-09-20 13:18] VITALS: BP 153/82
[2022-09-20] MEDS ORDERED: LIDO2SOL17 PO (18:13)
[2022-09-20] MEDS ORDERED: PERC5TAB12 PO (18:13)
[2022-09-20] MEDS ORDERED: AMOX875T2 PO (18:13)
== END 2022-09-20 13:51 | disposition home or self-care (01) ==
LOC: M ED 13:17
DX: Z53.21 Procedure and treatment not carried out due to patient leaving prior to being seen by health care provider (principal)

== ENCOUNTER 2022-09-20 13:24 | Emergency (ER) | payer MEDICAID, OTHER ==
[~2022-09-20] VITALS: Ht 162.6 cm; Wt 61.2 kg
[2022-09-20] MEDS ORDERED: AUGMENTIN 875 MG TAB PO ONE (18:00)
[2022-09-20] MEDS ORDERED: PERCOCET 5MG/325MG TAB PO ONE (18:00)
[2022-09-20] MEDS ORDERED: LIDOCAINE VISCOUS 2% SOLN 15ML UDC SS ONE (18:00)
[2022-09-20] MEDS ORDERED: KETOROLAC 60MG 2ML VIAL IM ONE (18:00)
[2022-09-20] MEDS ORDERED: LIDO2SOL17 PO (18:13)
[2022-09-20] MEDS ORDERED: AMOX875T2 PO (18:13)
[2022-09-20] MEDS ORDERED: PERC5TAB12 PO (18:13)
[2022-09-20 19:07] VITALS: BP 145/95
== END 2022-09-20 19:09 | disposition home or self-care (01) ==
LOC: M ED 13:24
DX: K03.81 Cracked tooth (principal); Z88.5 Allergy status to narcotic agent
CPT/HCPCS: 96372; 99283; J1885

== ENCOUNTER 2022-11-28 09:30 | Emergency (ER) | payer OTHER ==
[~2022-11-28] VITALS: Ht 165.1 cm; Wt 59.1 kg
[~2022-11-28 09:30] MED LIST changes: +AMOX875T2 PO; +LIDO2SOL17 PO; +PERC5TAB12 PO
[2022-11-28 09:31] VITALS: BP 154/75
[2022-11-28] MEDS ORDERED: CLON0.5T2 (09:56)
[2022-11-28] MEDS ORDERED: AMPH1CAP16 (09:56)
[2022-11-28] MEDS ORDERED: CLON-412 (09:56)
[2022-11-28] MEDS ORDERED: CITA20TA7 (09:56)
[2022-11-28 10:52] LABS: BASO # 0.1 10^3/uL (0.0-0.2); BASO % 0.4 % (0.0-1.0); EOS # 0.4 10^3/uL (0.0-0.5); HEMATOCRIT 39.1 % (42.0-52.0); LYMPH # 2.3 10^3/uL (1.5-5.0); LYMPH % 11.5 % (24.0-44.0); MEAN CORPUSCULAR HEMOGLOBIN 30.7 pg (27.0-33.0); MEAN CORPUSCULAR HGB CONC 33.2 g/dl (32.0-36.5); MEAN CORPUSCULAR VOLUME 92.4 fl (80.0-96.0); MONO # 1.1 10^3/uL (0.0-0.8); MONO % 5.4 % (2.0-8.0); NEUTROPHILS # 15.8 10^3/uL (1.5-8.5); PLATELET COUNT, AUTOMATED 196 10^3/uL (150-450); RED BLOOD COUNT 4.23 10^6/uL (4.30-6.10); WHITE BLOOD COUNT 19.7 10^3/uL (4.0-10.0)
[2022-11-28 11:32] LABS: BLOOD UREA NITROGEN 20 MG/DL (9-23); CALCIUM LEVEL 8.5 MG/DL (8.5-10.1); CARBON DIOXIDE LEVEL 29 MMOL/L (20-31); CHLORIDE LEVEL 105 MMOL/L (98-107); CK-MB VALUE MASS < 1.0 NG/ML (<3.6); CREATININE FOR GFR 0.73 MG/DL (0.70-1.30); GLOMERULAR FILTRATION RATE > 60.0 (>60); GLUCOSE, FASTING 138 MG/DL (60-100); POTASSIUM SERUM 4.4 MMOL/L (3.5-5.1); SODIUM LEVEL 137 MMOL/L (136-145)
[2022-11-28 11:47] LABS: CPK CREATINE PHOSPHOKINASE 125 U/L (46-171)
[2022-11-28] MEDS ORDERED: ASPIRIN 81MG CHEW TABLET PO ONE (12:20)
[2022-11-28] MEDS ORDERED: diazePAM 2 MG TAB PO ONE (12:20)
[2022-11-28] MEDS ORDERED: ISOVUE-370 76% 100ML VIAL As Ordered ONE (12:24)
[2022-11-28] MEDS ORDERED: PILL CUTTER 1 EACH XX ONE (12:26)
[2022-11-28 12:35] LABS: ALBUMIN 3.9 G/DL (3.2-5.2); BILIRUBIN,DIRECT 0.1 MG/DL (<0.4); BILIRUBIN,TOTAL 0.4 MG/DL (0.3-1.2); TOTAL PROTEIN 7.3 G/DL (5.7-8.2)
[2022-11-28 12:42] LABS: RSV AMPLIFICATION NEGATIVE (NEGATIVE)
[2022-11-28] MEDS ORDERED: DOXYCYCLINE HYCLATE 100MG TABLET PO ONE (13:20)
[2022-11-28 13:27] LABS: CK-MB VALUE MASS < 1.0 NG/ML (<3.6)
[2022-11-28 13:28] LABS: CPK CREATINE PHOSPHOKINASE 121 U/L (46-171); MB/CK RELATIVE INDEX 0.82 (< OR =4)
[2022-11-28] MEDS ORDERED: DOXY-443 PO (14:31)
== END 2022-11-28 14:44 | disposition home or self-care (01) ==
LOC: M ED 09:30
DX: J18.9 Pneumonia, unspecified organism (principal); I45.10 Unspecified right bundle-branch block; F41.9 Anxiety disorder, unspecified; F32.A Depression, unspecified; Z88.5 Allergy status to narcotic agent; Z79.891 Long term (current) use of opiate analgesic; Z79.83 Long term (current) use of bisphosphonates; Z79.899 Other long term (current) drug therapy

== ENCOUNTER 2024-01-14 21:07 | Emergency (ER) | payer MEDICAID, OTHER ==
[~2024-01-14] VITALS: Ht 165.1 cm; Wt 58.0 kg
[~2024-01-14 21:07] MED LIST changes: +AMPH1CAP16; +CITA20TA7; +DOXY-443 PO; +LIDO15SO8 PO; -LIDO2SOL17 PO
[2024-01-15] MEDS: IBUPROFEN 600MG TAB PO ONE (03:44)
[2024-01-15 06:30] VITALS: BP 134/64; TEMP 98.6; O2SAT 97
== END 2024-01-15 06:32 | disposition home or self-care (01) ==
LOC: M ED 21:07
DX: S06.0X0A Concussion without loss of consciousness, initial encounter (principal); S49.91XA Unspecified injury of right shoulder and upper arm, initial encounter; X50.0XXA Overexertion from strenuous movement or load, initial encounter; F41.9 Anxiety disorder, unspecified; F17.200 Nicotine dependence, unspecified, uncomplicated; Z88.5 Allergy status to narcotic agent; Y92.009 Unspecified place in unspecified non-institutional (private) residence as the place of occurrence of the external cause; Y93.89 Activity, other specified; Y99.9 Unspecified external cause status; Z79.899 Other long term (current) drug therapy; Z79.891 Long term (current) use of opiate analgesic; Z79.83 Long term (current) use of bisphosphonates

== ENCOUNTER → 2024-02-07 | Outpatient (CLI) | payer OTHER | LOC: M SOG 15:20 | PROVIDERS: ATTEND Physician Assistant | DX: S43.121A Dislocation of right acromioclavicular joint, 100%-200% displacement, initial encounter (principal); Y93.9 Activity, unspecified; Y92.9 Unspecified place or not applicable ==

== ENCOUNTER → 2024-02-07 | Outpatient (CLI) | payer OTHER | LOC: M SOG 08:13 | PROVIDERS: ATTEND Physician Assistant | DX: Z53.9 Procedure and treatment not carried out, unspecified reason (principal) ==

== ENCOUNTER → 2024-07-22 | Outpatient (CLI) | payer OTHER ==
[~2024-07-22] MED LIST changes: +DOXY-323 PO; -DOXY-443 PO
== END ==
LOC: M PLAIMG 15:15
PROVIDERS: ATTEND Physician Assistant
DX: S43.101D Unspecified dislocation of right acromioclavicular joint, subsequent encounter (principal)

== ENCOUNTER 2024-12-26 13:30 | Emergency (ER) | payer MEDICAID, OTHER ==
[~2024-12-26] VITALS: Ht 165.1 cm; Wt 54.9 kg
[~2024-12-26 13:30] MED LIST changes: -DOXY-323 PO; +DOXY-441 PO
[2024-12-26 16:39] VITALS: TEMP 96.8
[2024-12-26] MEDS: IPRATROPIUM 0.5MG/ALBUTEROL 2.5MG INH SOL UD 3ML (DUONEB) NEB ONE (16:45)
[2024-12-26] MEDS ORDERED: ZITHTAB PO (18:02)
[2024-12-26] MEDS ORDERED: ALBU2.5V10 NEB (18:02)
[2024-12-26] MEDS ORDERED: VENTAER INH (18:02)
[2024-12-26] MEDS ORDERED: NEBU1EAC78 MC (18:02)
[2024-12-26 18:09] VITALS: BP 145/79; O2SAT 96
== END 2024-12-26 18:13 | disposition home or self-care (01) ==
LOC: M ED 13:30
DX: J01.90 Acute sinusitis, unspecified (principal); J20.9 Acute bronchitis, unspecified; Z88.5 Allergy status to narcotic agent; Z79.52 Long term (current) use of systemic steroids; Z79.2 Long term (current) use of antibiotics; Z79.899 Other long term (current) drug therapy

== ENCOUNTER 2025-06-26 10:48 | Emergency (ER) | payer MEDICAID, OTHER ==
[~2025-06-26] VITALS: Ht 165.1 cm; Wt 55.9 kg
[~2025-06-26 10:48] MED LIST changes: +ALBU2.5V10 NEB; -IBUP-1022 PO; +IBUP600T42 PO; +NEBU1EAC78 MC; +VENTAER INH; +ZITHTAB PO
[2025-06-26 12:48] VITALS: BP 129/82; TEMP 98.5; O2SAT 98
[2025-06-26] MEDS ORDERED: AMOX875T2 PO (13:01)
[2025-06-26] MEDS ORDERED: IBUP80TA PO (13:01)
[2025-06-26] MEDS: KETOROLAC 30 MG/ML 1 ML VIAL IM ONE (13:04)
[2025-06-26] MEDS: [UNRECOGNIZED DRUG - OTHER] SM ONE (13:05)
[2025-06-26] MEDS: PERCOCET 5MG/325MG TAB PO ONE (13:05)
[2025-06-26] MEDS: EPINEPHRINE SM ONE (13:05)
== END 2025-06-26 13:15 | disposition home or self-care (01) ==
LOC: M ED 10:48
DX: K08.89 Other specified disorders of teeth and supporting structures (principal); K02.9 Dental caries, unspecified; Z79.899 Other long term (current) drug therapy; Z79.1 Long term (current) use of non-steroidal anti-inflammatories (NSAID)
CPT/HCPCS: 96374; 99283; J1885